=== PATIENT | female | born 1980 | race Caucasian/White ===

== ENCOUNTER 2017-02-11 11:43 | Emergency (ER) | payer SELFPAY ==
--- NOTE | 2017-02-11 14:38 | Emergency Department Report ---
ED Extremity Problem HPI - General Chief complaint: Shoulder Injury Stated complaint: ACHING LT SHOULDER Time Seen by Provider: 02/11/17 14:19 Source: patient Mode of arrival: Ambulatory Limitations: No Limitations - History of Present Illness Initial comments: PT c/o L shoulder pain x 4 days. PT states she lifts a lot of boxes at work and think she strained her shoulder. PT states she has taken Motrin, used heat and ice and she is still having L shoulder pain. PT states she will occasionally feel her L shoulder pop. PT has a hx of htn and is currently out of her bp medication. PT states she ate pork last night and thinks that is why her bp is elevated today. MD Complaint: joint paint Onset/Timin -: days(s) Location: left, upper extremity (L shoulder) History of Same: No -: Yes myalgia Severity scale (0 -10): 1 Quality: aching Consistency: constant Improves with: nothing Worsens with: palpation, other (use of left shoulder ) Associated Symptoms: denies other symptoms. denies: chest pain, shortness of breath, fever - Related Data Previous Rx's Medication Instructions Recorded Last Taken Type Hydrochlorothiazide [HCTZ] 25 mg PO QDAY #30 tablet 02/11/17 Unknown Rx Ibuprofen [Motrin] 600 mg PO Q8H PRN #15 tablet 02/11/17 Unknown Rx methOCARBAMOL [Robaxin TAB] 500 mg PO Q6H PRN #15 tablet 02/11/17 Unknown Rx Allergies Allergy/AdvReac Type Severity Reaction Status Date / Time ceftriaxone sodium Allergy Unknown Verified 02/11/17 12:03 [From Rocephin] ED Review of Systems ROS: Stated complaint: ACHING LT SHOULDER Other details as noted in HPI Comment: All other systems reviewed and negative Constitutional: denies: chills, fever Respiratory: denies: shortness of breath, SOB with exertion, SOB at rest Cardiovascular: denies: chest pain Gastrointestinal: denies: abdominal pain, nausea, vomiting Musculoskeletal: as per HPI ED Past Medical Hx - Past Medical History Previous Medical History?: Yes Hx Hypertension: Yes - Surgical History Past Surgical History?: Yes Additional Surgical History: R wrist vein release - Social History Smoking Status: Current Every Day Smoker Substance Use Type: Non Opiate Pain - Medications Home Medications: Home Medications Medication Instructions Recorded Confirmed Last Taken Type Hydrochlorothiazide [HCTZ] 25 mg PO QDAY #30 tablet 02/11/17 Unknown Rx Ibuprofen [Motrin] 600 mg PO Q8H PRN #15 tablet 02/11/17 Unknown Rx methOCARBAMOL [Robaxin TAB] 500 mg PO Q6H PRN #15 tablet 02/11/17 Unknown Rx ED Physical Exam - General Limitations: No Limitations General appearance: alert, in no apparent distress - Head Head exam: Present: atraumatic, normocephalic, normal inspection - Eye Eye exam: Present: normal appearance, PERRL, EOMI. Absent: conjunctival injection - ENT ENT exam: Present: normal exam, normal external ear exam - Neck Neck exam: Present: normal inspection, full ROM. Absent: tenderness - Respiratory Respiratory exam: Present: normal lung sounds bilaterally. Absent: respiratory distress - Cardiovascular Cardiovascular Exam: Present: regular rate, normal rhythm, normal heart sounds - Extremities Exam Extremities exam: Present: full ROM - Expanded Upper Extremity Exam Right Shoulder Exam: Present: normal inspection, full ROM Upper Arm exam: Present: normal inspection, full ROM Hand Wrist exam: Present: other (scar to ant R wrist ) Left Shoulder Exam: Present: normal inspection, full ROM, tenderness, tenderness over AC joint. Absent: swelling, crepidus, dislocation, erythema Upper Arm exam: Present: normal inspection Elbow exam: Present: normal inspection, full ROM Forearm Wrist exam: Present: normal inspection, full ROM Hand Wrist exam: Present: normal inspection, full ROM. Absent: tenderness Neuro motor exam: Present: thumb adduction intact, fingers 2-5 abduction intact Vascular: Present: normal capillary refill, radial pulse. Absent: vascular compromise - Back Exam Back exam: Present: normal inspection, full ROM. Absent: tenderness, CVA tenderness (R), CVA tenderness (L), muscle spasm, paraspinal tenderness, vertebral tenderness - Neurological Exam Neurological exam: Present: alert, oriented X3, normal gait - Psychiatric Psychiatric exam: Present: normal affect, normal mood - Skin Skin exam: Present: warm, dry, intact ED Course Vital Signs 02/11/17 12:03 Temperature 97.9 F Pulse Rate 82 Respiratory 16 Rate Blood Pressure 168/108 O2 Sat by Pulse 99 Oximetry - Reevaluation(s) Reevaluation #1: 02/11/17 14:43 PT aware of plan of care. PT aware her bp is elevated and she will need to follow up with PCP for recheck of bp and management of her chronic medical condition. Pt verbalizes understanding. Reevaluation #2: 02/11/17 16:08 PT aware of XR results. PT states she is out of hctz 25mg. PT aware she will need to follow up with PCP for bp recheck. PT verbalizes understanding. - Pulse Oximetry Interpretation Digit-Finger Initial Pulse Oximetry Readin Actions Taken: none ED Medical Decision Making - Differential Diagnosis strain. OA. Critical Care Time: No Critical care attestation.: If time is entered above; I have spent that time in minutes in the direct care of this critically ill patient, excluding procedure time. ED Disposition Clinical Impression: Left shoulder strain Qualifiers: Encounter type: initial encounter Qualified Code(s): S46.912A - Strain of unspecified muscle, fascia and tendon at shoulder and upper arm level, left arm , initial encounter Hypertension Qualifiers: Hypertension type: essential hypertension Qualified Code(s): I10 - Essential ( primary) hypertension Disposition: DISCHARGED TO HOME OR SELFCARE Is pt being admited?: No Does the pt Need Aspirin: No Condition: Stable Instructions: Hypertension (ED), Shoulder Sprain (ED) Additional Instructions: no driving or ETOH after Robaxin or Flexeril Prescriptions: Ibuprofen [Motrin] 600 mg PO Q8H PRN #15 tablet PRN Reason: Pain methOCARBAMOL [Robaxin TAB] 500 mg PO Q6H PRN #15 tablet PRN Reason: Muscle Spasm Referrals: PRIMARY MD AMARILYS [Primary Care Provider] - 3-5 Days WILLIAM OCHOA MD [Staff Physician] - 3-5 Days KAILYN STONER MD [Staff Physician] - 3-5 Days Forms: Work/School Release Form(ED) Time of Disposition: 16:10
--- NOTE | 2017-02-11 15:50 | XRay Report ---
LEFT SHOULDER: Pain Routine views demonstrate normal bony and soft tissue structures with normal joint alignment of the shoulder. IMPRESSION: Normal study.
[2017-02-11] MEDS ORDERED: MOTRIN PO ONE (16:06)
[2017-02-11] MEDS ORDERED: FLEXERIL PO ONE (16:07)
[2017-02-11 16:34] VITALS: BP 161/100
== END 2017-02-11 16:32 | disposition home or self-care (01) ==
LOC: ED 11:43
DX: S46.912A Strain of unspecified muscle, fascia and tendon at shoulder and upper arm level, left arm, initial encounter (principal); I10 Essential (primary) hypertension; F17.200 Nicotine dependence, unspecified, uncomplicated; X58.XXXA Exposure to other specified factors, initial encounter; Y93.9 Activity, unspecified; Y92.9 Unspecified place or not applicable; Y99.9 Unspecified external cause status
CPT/HCPCS: 99284